=== PATIENT | female | born 1930 | race Caucasian/White ===

== ENCOUNTER 2017-01-04 10:37 | Emergency (ER) | payer MEDICARE, OTHER ==
[2017-01-04 10:54] VITALS: BP 153/86
[2017-01-04] MEDS ORDERED: Sodium Chloride 0.9% 10 ML Syringe FLUSH PRN (11:04)
[2017-01-04 12:07] LABS: CHLORIDE,CL 106 mmol/L (98-107); SODIUM,NA 141 mmol/L (136-145)
--- NOTE | 2017-01-06 09:02 | ER ---
Date of Service: 01/04/2017 SUBJECTIVE: Zarina presents to the emergency room with complaints of rectal bleeding. She states that she had 2 bloody stools the night before presenting to the emergency room. She states that she did become quite anxious after seeing this and states that afterwards she began experiencing some dizziness and lightheadedness. She states that the bleeding was fairly small amount, and there were no clots. She states that it was bright red blood, and there was no coffee-grounds or tarry looking stool. The patient also complains of cough that she has been experiencing for approximately a month. She states that she does occasionally experience some mild shortness of breath with this. She states that she has not been evaluated for this. PAST MEDICAL HISTORY: 1. Hemorrhoids. 2. Diverticulosis. 3. History of chronic bronchitis. 4. GERD. 5. Atrial fibrillation. MEDICATIONS: 1. Benadryl. 2. Aspirin. 3. Acetaminophen. 4. Betapace. 5. Polyethylene glycol. ALLERGIES: 1. Famotidine. 2. Ensure. 3. Omeprazole. 4. Senna. 5. Taco seasoning. REVIEW OF SYSTEMS: General: Denies any fever or chills. HEENT: No sore throat, rhinorrhea, or congestion. Respiratory: Please see history of present illness. Cardiac: Denies any substernal chest pain. No jaw, arm, neck, or back pain. Gastrointestinal: Please see history of present illness. She denies any abdominal pain. Genitourinary: Does complain of hemorrhoids. Musculoskeletal: No myalgias or arthralgias. PHYSICAL EXAMINATION: General: An 86-year-old female patient, who is in no acute distress. Vital Signs: Blood pressure is 153/86, heart rate is 76, temperature is 36.4, respiratory rate is 18, and O2 saturation 98%. Skin: Warm, pink, and dry. HEENT: Head is normocephalic and atraumatic. Eyes, PERRLA. Extraocular movements are intact. Mouth, oral mucosa is moist. No erythema or exudate noted in the hypopharynx. Neck: Supple without masses. There is no lymphadenopathy. Lungs: Clear throughout. Heart: Regular rate and rhythm. Abdomen: Soft, nontender. There is no hepatosplenomegaly or masses noted. Extremities: Without edema. Genitourinary: She does have evidence of significant number of external hemorrhoids and external skin tags, some of them with evidence of recent bleeding. Neurologic: She is alert, oriented, and answers all questions appropriately. Her speech is fluent. Her gait is within normal limits. LABORATORY DATA: WBCs 5.0, hemoglobin is 10.8, and platelets are 160. Coag: PT is 10.2, INR is 0.9. Chemistry: Sodium is 141, potassium is 4.1, chloride is 106, bicarb is 28, BUN is 14, creatinine 0.9, creatinine clearance is 39.27, GFR is 60, glucose 127, lactic acid is 1.5, calcium is 8.5, and corrected calcium is 9.3. Total bilirubin is 0.6, AST is 14, ALT is 11, and alkaline phosphatase is 86. C-reactive protein is less than 0.2, total protein is 6.2, albumin is 3.0. Blood cultures x2 were obtained and are pending. Abdomen complete was obtained, and there was no evidence of any acute pathology. ASSESSMENT: 1. Acute bronchitis. 2. Hemorrhoids. PLAN: The patient was started on doxycycline 100 mg twice daily for 10 days. I also started her on Phenergan with codeine 1 to 2 teaspoons every 4 to 6 hours as needed for cough. Follow up in the clinic in 10 to 14 days or sooner if bleeding increases or if the patient has increased shortness of breath or lightheadedness. All questions were answered. MWK: 01/06/2017 00:26:11 MODL: 01/06/2017 03:12:15 /[id number]
== END 2017-01-04 12:40 | disposition home or self-care (01) ==
LOC: VM.ED 10:37
DX: K64.4 Residual hemorrhoidal skin tags (principal); J20.9 Acute bronchitis, unspecified; K21.9 Gastro-esophageal reflux disease without esophagitis; I48.91 Unspecified atrial fibrillation; Z88.8 Allergy status to other drugs, medicaments and biological substances; Z79.82 Long term (current) use of aspirin
CPT/HCPCS: 36415; 74022; 80053; 83605; 85025; 85610; 86140; 87040; 99283; 99283-GF

== ENCOUNTER 2017-10-18 14:24 | Emergency (ER) | payer MEDICARE, OTHER ==
[2017-10-18 14:32] VITALS: BP 137/78
--- NOTE | 2017-10-18 15:34 | EDM.PDOC ---
ED HPI GENERAL MEDICAL PROBLEM - General Chief Complaint: Respiratory Problem Stated Complaint: COUGHING Time Seen by Provider: 10/18/17 14:47 Source of Information: Reports: Patient, Family History Limitations: Reports: No Limitations - History of Present Illness INITIAL COMMENTS - FREE TEXT/NARRATIVE: Patient has been coughing for the last 3-4 days. No fever, chills, night sweats. She denies chest pain, but is short of breath when coughing. She states she has been feeling tired. She denies abdominal pain, no nausea, vomiting, no blood in urine or stool. States the over the counter medications she has been taking do not work. No sputum production. She does not get short of breath with activity. Son states she has been feeling dizzy. She has no other complaints. 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 Treatments - Related Data Allergies Allergy/AdvReac Type Severity Reaction Status Date / Time famotidine Allergy Itching Verified 10/18/17 14:33 lactose-reduced food Allergy Edema Verified 10/18/17 14:33 [From Ensure] nutritional Allergy Edema Verified 10/18/17 14:33 supplement,special formulas [From Ensure] omeprazole [From Prilosec] Allergy Swelling Verified 10/18/17 14:33 senna Allergy Itching Verified 10/18/17 14:33 taco seasoning Allergy Edema Uncoded 01/04/17 10:45 Home Meds: Home Meds Sotalol [Betapace] 80 mg PO BID 04/09/15 [History] Acetaminophen [Tylenol Extra Strength] 1,000 mg PO Q8H PRN 01/14/16 [History] Aspirin 325 mg PO DAILY 01/14/16 [History] Polyethylene Glycol 3350 [MiraLAX] 17 gm PO DAILY PRN 01/14/16 [History] diphenhydrAMINE [Benadryl] 50 mg PO Q8H PRN 02/29/16 [History] Hydrocortisone Acetate [Anucort-HC] 25 mg RC BEDTIME PRN 10/18/17 [History] Past Medical History HEENT History: Reports: Cataract, Other (See Below) Other HEENT History: jaw asymmetry. 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: Musculoskeletal History: Reports: Fracture, Other (See Below) Other Musculoskeletal History: left patella fx Neurological History: Reports: Migraines Psychiatric History: Reports: None Oncologic (Cancer) History: Reports: Breast Dermatologic History: Reports: Other (See Below) Other Dermatologic History: actinic keratosis - Past Surgical History GI Surgical History: Reports: Colonoscopy Female Surgical History: Reports: Hysterectomy Musculoskeletal Surgical History: Reports: Other (See Below) Other Musculoskeletal Surgeries/Procedures:: knee surgery Oncologic Surgical History: Reports: Mastectomy Social & Family History - Family History Family Medical History: Noncontributory - Tobacco Use Smoking Status *Q: Unknown Ever Smoked - Caffeine Use Caffeine Use: Reports: Coffee ED ROS GENERAL - Review of Systems Review Of Systems: See Below Constitutional: Reports: No Symptoms HEENT: Reports: No Symptoms Respiratory: Reports: Cough Cardiovascular: Reports: No Symptoms Endocrine: Reports: No Symptoms GI/Abdominal: Reports: No Symptoms : Reports: No Symptoms Musculoskeletal: Reports: No Symptoms Skin: Reports: No Symptoms Neurological: Reports: No Symptoms Psychiatric: Reports: No Symptoms Hematologic/Lymphatic: Reports: No Symptoms Immunologic: Reports: No Symptoms ED EXAM, GENERAL - Physical Exam Exam: See Below Exam Limited By: No Limitations General Appearance: Alert, WD/WN, No Apparent Distress Ears: Normal External Exam, Normal Canal, Hearing Grossly Normal, Normal TMs Head: Atraumatic, Normocephalic Neck: Normal Inspection, Supple, Non-Tender, Full Range of Motion Respiratory/Chest: No Respiratory Distress, Lungs Clear, Normal Breath Sounds, No Accessory Muscle Use, Chest Non-Tender Cardiovascular: Normal Peripheral Pulses, Regular Rate, Rhythm, No Edema, No Gallop, No JVD, No Murmur, No Rub GI/Abdominal: Normal Bowel Sounds, Soft, Non-Tender, No Organomegaly, No Distention, No Abnormal Bruit, No Mass Back Exam: Normal Inspection, Full Range of Motion, NT Extremities: Normal Inspection, Normal Range of Motion, Non-Tender, Normal Capillary Refill, No Pedal Edema Neurological: Alert, Oriented, CN II-XII Intact, Normal Cognition, Normal Gait, Normal Reflexes, No Motor/Sensory Deficits Psychiatric: Normal Affect, Normal Mood Skin Exam: Warm, Dry, Intact, Normal Color, No Rash Lymphatic: No Adenopathy Course - Vital Signs Last Recorded V/S: Last Vital Signs Temp 37.1 C 10/18/17 14:28 Pulse 76 10/18/17 14:28 Resp 18 10/18/17 14:28 BP 137/78 10/18/17 14:28 Pulse Ox 95 10/18/17 14:28 Departure - Departure Time of Disposition: 15:58 Disposition: Home, Self-Care 01 Condition: Good Clinical Impression: Cough, Viral respiratory illness, COPD (chronic obstructive pulmonary disease) - Discharge Information Instructions: Viral Respiratory Infection, [id number], Cough, Adult, Easy-to- Read, Chronic Obstructive Pulmonary Disease, [id number] Additional Instructions: Follow up with your regular provider in 5-7 days if you are not better. Your x-ray does not show any pneumonia at this time. Your blood work did not show sign of bacterial infection. Drink plenty of water and get as much rest as you need. This is likely a viral illness and you should treat it with over the counter medications. I have included a list for you. Please call with any questions or concern - Problem List & Annotations (1) Cough SNOMED Code(s): 98683801 Code(s): R05 - COUGH Status: Acute Priority: Medium Current Visit: Yes (2) Viral respiratory illness SNOMED Code(s): 979493222 Code(s): J98.8 - OTHER SPECIFIED RESPIRATORY DISORDERS; B97.89 - OTH VIRAL AGENTS THE CAUSE OF DISEASES CLASSD ELSWHR Status: Acute Priority: Medium Current Visit: Yes - Problem List Review Problem List Initiated/Reviewed/Updated: Yes - Assessment/Plan Assessment:: cough viral upper respiratory infection Plan: Follow up with your regular provider in 5-7 days if you are not better. Your x-ray does not show any pneumonia at this time. Your blood work did not show sign of bacterial infection. Drink plenty of water and get as much rest as you need. This is likely a viral illness and you should treat it with over the counter medications. I have included a list for you. Please call with any questions or concern
[2017-10-18] MEDS ORDERED: Albuterol/Ipratropium 3.0-0.5 MG/3 ML Neb Soln NEB ONE (15:43)
== END 2017-10-18 16:05 | disposition home or self-care (01) ==
LOC: VM.ED 14:24
DX: J44.9 Chronic obstructive pulmonary disease, unspecified (principal); J98.8 Other specified respiratory disorders; I48.91 Unspecified atrial fibrillation; I25.2 Old myocardial infarction; B97.89 Other viral agents as the cause of diseases classified elsewhere; Z88.8 Allergy status to other drugs, medicaments and biological substances; Z79.82 Long term (current) use of aspirin; Z79.899 Other long term (current) drug therapy
CPT/HCPCS: 36415; 71046; 85025; 99283; 99283-GF

== ENCOUNTER 2019-06-04 20:22 | Emergency (ER) | payer MEDICARE, OTHER ==
--- NOTE | 2019-06-04 20:37 | EDM.PDOC ---
ED HPI GENERAL MEDICAL PROBLEM - General Chief Complaint: Gastrointestinal Problem Stated Complaint: Blood in S[place] Time Seen by Provider: 06/04/19 20:25 Source of Information: Reports: Patient History Limitations: Reports: No Limitations - History of Present Illness INITIAL COMMENTS - FREE TEXT/NARRATIVE: Patient states prior to arrival about 25 minutes ago she had a sudden onset of red bowel movement states it was a lot. She felt a little lightheaded afterwards but feels fine now she has no other complaints no abdominal pain no nausea vomiting weakness dizziness. She has a history of hemorrhoids and diverticulitis/diverticulosis That she felt normal all day ate pizza for supper Duration: Minutes: Improves with: Reports: None Worsens with: Reports: None - Related Data Allergies Allergy/AdvReac Type Severity Reaction Status Date / Time famotidine Allergy Itching Verified 06/04/19 20:40 lactose-reduced food Allergy Facial Verified 06/04/19 20:40 [From Ensure] Swelling nutritional Allergy Facial Verified 06/04/19 20:40 supplement,special formulas Swelling [From Ensure] omeprazole [From Prilosec] Allergy Swelling Verified 06/04/19 20:40 senna Allergy Itching Verified 06/04/19 20:40 taco seasoning Allergy Facial Uncoded 06/04/19 20:40 Swelling Home Meds: Home Meds Sotalol [Betapace] 80 mg PO BID 04/09/15 [History] Acetaminophen [Tylenol Extra Strength] 1,000 mg PO Q8H PRN 01/14/16 [History] Aspirin 325 mg PO DAILY 01/14/16 [History] Polyethylene Glycol 3350 [MiraLAX] 17 gm PO DAILY PRN 01/14/16 [History] diphenhydrAMINE [Benadryl] 50 mg PO Q8H PRN 02/29/16 [History] Hydrocortisone Acetate [Anucort-HC] 25 mg RC BEDTIME PRN 10/18/17 [History] Past Medical History HEENT History: Reports: Cataract, Other (See Below) Other HEENT History: jaw asymmetry. 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: Musculoskeletal History: Reports: Fracture, Other (See Below) Other Musculoskeletal History: left patella fx Neurological History: Reports: Migraines Psychiatric History: Reports: None Oncologic (Cancer) History: Reports: Breast Dermatologic History: Reports: Other (See Below) Other Dermatologic History: actinic keratosis - Past Surgical History GI Surgical History: Reports: Colonoscopy Female Surgical History: Reports: Hysterectomy Musculoskeletal Surgical History: Reports: Other (See Below) Other Musculoskeletal Surgeries/Procedures:: knee surgery Oncologic Surgical History: Reports: Mastectomy Social & Family History - Family History Family Medical History: Noncontributory - Caffeine Use Caffeine Use: Reports: Coffee ED ROS GENERAL - Review of Systems Review Of Systems: See Below Constitutional: Reports: No Symptoms. Denies: Fever, Chills, Malaise, Weakness , Fatigue, Night Sweats, Diaphoresis, Decreased Appetite HEENT: Reports: No Symptoms Respiratory: Reports: No Symptoms Cardiovascular: Denies: Chest Pain, Blood Pressure Problem, Claudication, Dyspnea on Exertion, Edema, Lightheadedness, Palpitations, Syncope Endocrine: Denies: Fatigue GI/Abdominal: Reports: Bloody Stool. Denies: Abdominal Pain, Anorexia, Black Stool, Constipation, Diarrhea, Decreased Appetite, Distension, Hematemesis, Melena, Mucous in Stool, Nausea, Vomiting : Reports: No Symptoms Musculoskeletal: Reports: No Symptoms Skin: Reports: No Symptoms Neurological: Reports: Dizziness, Other (She states the dizziness is chronic and has been going on for years with no changes) Psychiatric: Reports: No Symptoms Hematologic/Lymphatic: Reports: No Symptoms Immunologic: Reports: No Symptoms ED EXAM, GI/ABD - Physical Exam Exam: See Below Exam Limited By: No Limitations General Appearance: Alert, WD/WN, No Apparent Distress, Other (Patient is alert and friendly follows all commands answers all questions cranial nerves II through XII are intact) Eyes: Bilateral: Normal Appearance, EOMI Throat/Mouth: Normal Inspection, Normal Lips, Normal Teeth, Normal Gums, Normal Oropharynx, Normal Voice, No Airway Compromise, Other (Moist mucous membranes) Neck: Normal Inspection, Supple, Non-Tender, Full Range of Motion Respiratory/Chest: No Respiratory Distress, Lungs Clear, Normal Breath Sounds, No Accessory Muscle Use, Chest Non-Tender Cardiovascular: Normal Peripheral Pulses, Regular Rate, Rhythm, No Edema, No Gallop, No JVD, No Murmur, No Rub GI/Abdominal Exam: Normal Bowel Sounds, Soft, Non-Tender, No Organomegaly, No Distention. No: Guarding, Rigid, Rebound, Tender Back Exam: Normal Inspection, Full Range of Motion Extremities: Normal Inspection, Normal Range of Motion, Non-Tender, No Pedal Edema, Normal Capillary Refill Neurological: Alert, Oriented, CN II-XII Intact, Normal Cognition, Normal Gait Psychiatric: Normal Affect, Normal Mood Course - Vital Signs Text/Narrative:: Noted bright red blood in the toilet after patient had BM Patient has longstanding history of hypertension states she does not want to take medicine Hemoglobin hematocrit BUN and creatinine all within normal limits all vital signs are stable no abdominal pain No acute finding with orthostatics Patient recheck states she feels fine does not want admission or transfer states she will follow-up with Lor Friday or Friday explained risk versus benefits the patient she still states she does not wish for admission knobs or transfer She has been told that she needed to start blood pressure medication for a while now but has not but she is willing to start tonight I will treat her with lisinopril 10 mg 1 p.o. daily till she sees her primary care provider Last Recorded V/S: Last Vital Signs Temp 35.7 C 06/04/19 20:47 Pulse 94 06/04/19 21:08 Resp 16 06/04/19 21:08 BP 155/101 H 06/04/19 21:08 Pulse Ox 97 06/04/19 21:08 - Orders/Labs/Meds Labs: Laboratory Tests 06/04/19 06/04/19 06/04/19 Range/Units 20:59 20:59 20:59 WBC 6.0 (4.0-10.0) x10^3/uL RBC 4.32 (4.00-5.50) x10^6/uL Hgb 12.5 D (12.0-16.0) g/dL Hct 38.7 (33.0-47.0) % MCV 89.6 (78.0-93.0) fL MCH 28.9 (26.0-32.0) pg MCHC 32.3 (32.0-36.0) g/dL RDW Coeff of Jolynn 14.8 (10.0-15.0) % Plt Count 191 (130-400) x10^3/uL Neut % (Auto) 63.7 (50.0-80.0) % Lymph % (Auto) 27.7 (25.0-50.0) % [place] % (Auto) 6.9 (2.0-11.0) % Eos % (Auto) 1.5 (0.0-4.0) % Baso % (Auto) 0.2 (0.2-1.2) % PT 10.2 (10.0-12.8) SEC INR 0.9 L (2.0-3.5) Sodium 140 (136-145) mmol/L Potassium 3.9 (3.5-5.1) mmol/L Chloride 102 (98-107) mmol/L Carbon Dioxide 31 (21-32) mmol/L Anion Gap 10.9 (10-20) mmol/L BUN 14 (7-18) mg/dL Creatinine 0.9 (0.55-1.02) mg/dL Est Cr Clr Drug Dosing 39.42 mL/min Estimated GFR (MDRD) 59 Glucose 111 H (74-106) mg/dL Calcium 8.2 L (8.5-10.1) mg/dL Corrected Calcium 8.52 (8.5-10.1) mg/dL Total Bilirubin 0.5 (0.2-1.0) mg/dL AST 15 (15-37) U/L ALT 14 (14-59) U/L Alkaline Phosphatase 108 (46-116) U/L Total Protein 7.1 (6.4-8.2) g/dL Albumin 3.6 (3.4-5.0) g/dL Globulin 3.5 Albumin/Globulin Ratio 1.03 Meds: Medications Discontinued Medications Generic Name Dose Route Start Last Admin Trade Name Freq PRN Reason Stop Dose Admin Lisinopril 10 mg 06/04/19 22:27 Prinivil PO 06/04/19 22:28 ONETIME ONE Departure - Departure Time of Disposition: 22:25 Disposition: Home, Self-Care 01 Condition: Good Clinical Impression: Rectal bleeding, Hypertension - Discharge Information *PRESCRIPTION DRUG MONITORING PROGRAM REVIEWED*: No *COPY OF PRESCRIPTION DRUG MONITORING REPORT IN PATIENT ALETHEA: No Instructions: Hypertension, [id number], Rectal Bleeding, [id number] Referrals: Lor Gonzalez PA-C [Primary Care Provider] - Forms: ED Department Discharge Sepsis Event Note - Focused Exam Vital Signs: Vital Signs Temp Pulse Resp BP Pulse Ox 06/04/19 21:08 94 16 155/101 H 97 06/04/19 20:47 35.7 C 99 16 172/100 H 97 Date Exam was Performed: 06/04/19 Time Exam was Performed: 22:30 - Problem List & Annotations (1) Hypertension SNOMED Code(s): 19702550 Code(s): I10 - ESSENTIAL (PRIMARY) HYPERTENSION Status: Acute Current Visit: Yes (2) Rectal bleeding SNOMED Code(s): 55111697 Code(s): K62.5 - HEMORRHAGE OF ANUS AND RECTUM Status: Acute Current Visit: Yes
[2019-06-04 21:16] VITALS: PULSE 94
[2019-06-04 21:34] LABS: ANION GAP 10.9 mmol/L (10-20)
[2019-06-04] MEDS ORDERED: Lisinopril 10 MG Tab PO ONE (22:27)
[2019-06-04 22:44] VITALS: BP 145/100
== END 2019-06-04 22:47 | disposition home or self-care (01) ==
LOC: VM.ED 20:22
DX: K62.5 Hemorrhage of anus and rectum (principal); I10 Essential (primary) hypertension; Z88.8 Allergy status to other drugs, medicaments and biological substances; Z91.011 Allergy to milk products; Z79.82 Long term (current) use of aspirin; Z86.73 Personal history of transient ischemic attack (TIA), and cerebral infarction without residual deficits
CPT/HCPCS: 36415; 80053; 85025; 85610; 99284-GF; 99285; A9270-GY

== ENCOUNTER 2020-01-18 18:33 | Emergency (ER) | payer MEDICARE, OTHER ==
[2020-01-18 18:54] VITALS: BP 144/80; PULSE 96
--- NOTE | 2020-01-19 06:28 | EDM.PDOC ---
ED HPI GENERAL MEDICAL PROBLEM - General Chief Complaint: Gastrointestinal Problem Stated Complaint: ER Time Seen by Provider: 01/18/20 18:33 Source of Information: Reports: Patient History Limitations: Reports: No Limitations - History of Present Illness INITIAL COMMENTS - FREE TEXT/NARRATIVE: Pt. presents to ER with complaints of acute onset bright red rectal bleeding. Pt. states that she has a history of hemorrhoids, and recently had them banded. She is supposed to have surgery at some point. She states that she recently had knee surgery and has been on oral opiates for pain, which has caused her chronic constipation to get worse. Pt. denies any abdominal pain. No fever or chills. Denies any lightheadedness. No shortness of breath. She states that the she has had only one episode of rectal bleeding, and that was just prior to coming to ER. Onset Date: 01/18/20 Associated Symptoms: Reports: Other - Related Data Allergies Allergy/AdvReac Type Severity Reaction Status Date / Time famotidine Allergy Itching Verified 01/18/20 19:00 lactose-reduced food Allergy Facial Verified 01/18/20 19:00 [From Ensure] Swelling nutritional Allergy Facial Verified 01/18/20 19:00 supplement,special formulas Swelling [From Ensure] omeprazole [From Prilosec] Allergy Swelling Verified 01/18/20 19:00 senna Allergy Itching Verified 01/18/20 19:00 taco seasoning Allergy Facial Uncoded 01/18/20 19:00 Swelling Home Meds: Home Meds Acetaminophen [Tylenol Extra Strength] 1,000 mg PO Q8H PRN 01/14/16 [History] Aspirin 325 mg PO DAILY 01/14/16 [History] Polyethylene Glycol 3350 [MiraLAX] 17 gm PO DAILY PRN 01/14/16 [History] diphenhydrAMINE [Benadryl] 50 mg PO Q8H PRN 02/29/16 [History] Hydrocortisone Acetate [Anucort-HC] 25 mg RC BEDTIME PRN 10/18/17 [History] Albuterol Sulfate [Albuterol Sulfate Hfa] 2 puff IH Q4HR PRN 06/05/19 [History] Past Medical History HEENT History: Reports: Cataract, Other (See Below) Other HEENT History: jaw asymmetry. tooth fx Cardiovascular History: Reports: Afib, [place], Other (See Below) Other Cardiovascular History: nstemi Respiratory History: Reports: Asthma, Other (See Below) Other Respiratory History: Mild intermittent asthma. 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: Musculoskeletal History: Reports: Fracture, Other (See Below) Other Musculoskeletal History: left patella fx Neurological History: Reports: Migraines Psychiatric History: Reports: None Oncologic (Cancer) History: Reports: Breast Dermatologic History: Reports: Other (See Below) Other Dermatologic History: actinic keratosis - Past Surgical History GI Surgical History: Reports: Colonoscopy Female Surgical History: Reports: Hysterectomy Musculoskeletal Surgical History: Reports: Other (See Below) Other Musculoskeletal Surgeries/Procedures:: knee surgery Oncologic Surgical History: Reports: Mastectomy Social & Family History - Family History Family Medical History: Noncontributory - Tobacco Use Smoking Status *Q: Unknown Ever Smoked - Caffeine Use Caffeine Use: Reports: Coffee ED ROS GENERAL - Review of Systems Review Of Systems: Comprehensive ROS is negative, except as noted in HPI. ED EXAM, GENERAL - Physical Exam Exam: See Below GI/Abdominal: Normal Bowel Sounds, Soft, Non-Tender, No Organomegaly, No Distention, No Mass (Female) Exam: Other (Rectal exam performed. There was a small amount of mariaelena blood noted on exam. Large amount of internal and external hemorrhoids noted. Decreased elasticity/increased narrowing of anus/rectum due to hemorrhoids.) Course - Vital Signs Last Recorded V/S: Last Vital Signs Temp 35.9 C L 01/18/20 18:40 Pulse 96 01/18/20 18:40 Resp 16 01/18/20 18:40 BP 144/80 H 01/18/20 18:40 Pulse Ox 98 01/18/20 18:40 Departure - Departure Time of Disposition: 19:15 Disposition: Home, Self-Care 01 Clinical Impression: Hemorrhoids, complicated - Discharge Information Instructions: Hydrocortisone suppositories, Hemorrhoids, [id number], Hydrocortisone rectal cream Referrals: Lor Gonzalez PA-C [Primary Care Provider] - Forms: ED Department Discharge Additional Instructions: Anusol HC suppositories 1 suppository placed three times daily for hemorrhoids Anusol cream apply to external hemorrhoids twice daily Start miralax again 17 grams (one capful) daily mixed into large glass of water Increase intake of water Colace 100mg 1 twice daily for constipation Both the colace and the miralax are available over the counter Follow-up in clinic as needed. Sepsis Event Note (ED) - Evaluation Sepsis Screening Result: No Definite Risk - Focused Exam Vital Signs: Vital Signs Temp Pulse Resp BP Pulse Ox 01/18/20 18:40 35.9 C L 96 16 144/80 H 98 - Assessment/Plan Plan: Anusol HC suppositories 1 suppository placed three times daily for hemorrhoids Anusol cream apply to external hemorrhoids twice daily Start miralax again 17 grams (one capful) daily mixed into large glass of water Increase intake of water Colace 100mg 1 twice daily for constipation Both the colace and the miralax are available over the counter Follow-up in clinic as needed.
== END 2020-01-18 19:15 | disposition home or self-care (01) ==
LOC: VM.ED 18:33
DX: K64.4 Residual hemorrhoidal skin tags (principal); K64.8 Other hemorrhoids; I48.91 Unspecified atrial fibrillation; I25.2 Old myocardial infarction; J45.909 Unspecified asthma, uncomplicated; Z88.8 Allergy status to other drugs, medicaments and biological substances; Z91.048 Other nonmedicinal substance allergy status; Z91.018 Allergy to other foods; Z79.82 Long term (current) use of aspirin
CPT/HCPCS: 99283

== ENCOUNTER 2020-03-17 07:26 | Emergency (ER) | payer MEDICARE, OTHER ==
[2020-03-17 07:43] VITALS: BP 145/90; PULSE 96
--- NOTE | 2020-03-17 07:58 | EDM.PDOC ---
ED HPI GENERAL MEDICAL PROBLEM - General Chief Complaint: Gastrointestinal Problem Stated Complaint: UNABLE TO VOID Time Seen by Provider: 03/17/20 07:30 Source of Information: Reports: Patient History Limitations: Reports: No Limitations - History of Present Illness INITIAL COMMENTS - FREE TEXT/NARRATIVE: Patient comes in the emergency department with complaints of constipation. Patient states that she has not had a bowel movement 4 to 5 days. Patient states that she has taken 1 MiraLAX cap full as well as for laxatives/stool softeners in the last 4 days with no results. Patient does not remember the last time that she had a consistent bowel movement for she has been constipated the last 1 to 2 months. She denies any nausea or vomiting. She also denies any fever, chest pain, shortness of breath, genitourinary concerns, or peripheral edema. Patient states that she feels fairly well however she knows that if she continues that there will be bigger consequences. Patient has taken suppositories in the past as well as enemas with relief. Patient denies taking any thing that makes the symptoms better or worse. Nursing did see in the patients clinic chart she has been given opioids this past month intermittently. Patient also does have extensive history of hemorrhoids and has actually been seen in the emergency department regarding her hemorrhoids and bleeding in the past. Any concerns or complaints regarding hemorrhoids currently. Onset: Gradual Duration: Intermittent Quality: Reports: Other Severity: Moderate Improves with: Reports: None Worsens with: Reports: None Associated Symptoms: Reports: No Other Symptoms - Related Data Allergies Allergy/AdvReac Type Severity Reaction Status Date / Time famotidine Allergy Itching Verified 03/17/20 07:45 lactose-reduced food Allergy Facial Verified 03/17/20 07:45 [From Ensure] Swelling nutritional Allergy Facial Verified 03/17/20 07:45 supplement,special formulas Swelling [From Ensure] omeprazole [From Prilosec] Allergy Swelling Verified 03/17/20 07:45 senna Allergy Itching Verified 03/17/20 07:45 taco seasoning Allergy Facial Uncoded 03/17/20 07:45 Swelling Home Meds: Home Meds Acetaminophen [Tylenol Extra Strength] 1,000 mg PO Q8H PRN 01/14/16 [History] Aspirin 325 mg PO DAILY 01/14/16 [History] Polyethylene Glycol 3350 [MiraLAX] 17 gm PO DAILY PRN 01/14/16 [History] diphenhydrAMINE [Benadryl] 50 mg PO Q8H PRN 02/29/16 [History] Hydrocortisone Acetate [Anucort-HC] 25 mg RC BEDTIME PRN 10/18/17 [History] Albuterol Sulfate [Albuterol Sulfate Hfa] 2 puff IH Q4HR PRN 06/05/19 [History] Past Medical History HEENT History: Reports: Cataract, Other (See Below) Other HEENT History: jaw asymmetry. tooth fx Cardiovascular History: Reports: Afib, NE, Other (See Below) Other Cardiovascular History: nstemi Respiratory History: Reports: Asthma, Other (See Below) Other Respiratory History: Mild intermittent asthma. 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: Musculoskeletal History: Reports: Fracture, Other (See Below) Other Musculoskeletal History: left patella fx Neurological History: Reports: Migraines Psychiatric History: Reports: None Oncologic (Cancer) History: Reports: Breast Dermatologic History: Reports: Other (See Below) Other Dermatologic History: actinic keratosis - Past Surgical History GI Surgical History: Reports: Colonoscopy Female Surgical History: Reports: Hysterectomy Musculoskeletal Surgical History: Reports: Other (See Below) Other Musculoskeletal Surgeries/Procedures:: knee surgery Oncologic Surgical History: Reports: Mastectomy Social & Family History - Family History Family Medical History: Noncontributory - Caffeine Use Caffeine Use: Reports: Coffee ED ROS GENERAL - Review of Systems Review Of Systems: Comprehensive ROS is negative, except as noted in HPI. Constitutional: Reports: No Symptoms HEENT: Reports: No Symptoms Respiratory: Reports: No Symptoms Cardiovascular: Reports: No Symptoms Endocrine: Reports: No Symptoms : Reports: No Symptoms Musculoskeletal: Reports: No Symptoms Skin: Reports: No Symptoms Neurological: Reports: No Symptoms Psychiatric: Reports: No Symptoms Hematologic/Lymphatic: Reports: No Symptoms Immunologic: Reports: No Symptoms ED EXAM, GENERAL - Physical Exam Exam: See Below Exam Limited By: No Limitations General Appearance: Alert, WD/WN, No Apparent Distress Head: Atraumatic, Normocephalic Neck: Normal Inspection, Supple, Non-Tender, Full Range of Motion Respiratory/Chest: No Respiratory Distress, Lungs Clear, Normal Breath Sounds, Chest Non-Tender Cardiovascular: Normal Peripheral Pulses, Regular Rate, Rhythm, No Edema GI/Abdominal: Normal Bowel Sounds, Soft, Non-Tender, No Distention. No: Distended, Rebound, Tender, Abnormal Bowel Sounds, Hernia Extremities: Normal Inspection, Normal Range of Motion, Non-Tender, Normal Capillary Refill Neurological: Alert, Oriented, Normal Gait Psychiatric: Normal Affect, Normal Mood Skin Exam: Warm, Dry, Intact, Normal Color Course - Vital Signs Last Recorded V/S: Last Vital Signs Temp 36.2 C 03/17/20 07:33 Pulse 96 03/17/20 07:33 Resp 18 03/17/20 07:33 BP 145/90 H 03/17/20 07:33 Pulse Ox 97 03/17/20 07:33 Departure - Departure Time of Disposition: 08:30 Disposition: Home, Self-Care 01 Condition: Good Clinical Impression: Constipation - Discharge Information *PRESCRIPTION DRUG MONITORING PROGRAM REVIEWED*: Not Applicable *COPY OF PRESCRIPTION DRUG MONITORING REPORT IN PATIENT ALETHEA: Not Applicable Instructions: Constipation, Adult, Magnesium Citrate oral solution Forms: ED Department Discharge Additional Instructions: 1. rest 2. increase your water intake 3. Continue all at home medications 4. Try taking a 1/2 bottle of the magnesium citrate and wait a few hours if no results begin can try taking the second half of the bottle 5. 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 6. Activity and diet as tolerated 7. Can take over the counter Tylenol for any pain or discomfort 8. Follow up with PCP if symptoms continue, return, or progress 9. Call with any questions or concerns 10. If no relief please return and we will look at completing an enema. Sepsis Event Note (ED) - Evaluation Sepsis Screening Result: No Definite Risk - Focused Exam Vital Signs: Vital Signs Temp Pulse Resp BP Pulse Ox 03/17/20 07:33 36.2 C 96 18 145/90 H 97 - Assessment/Plan Assessment:: 1. constipation Plan: 1. X-ray completed in the emergency department results reviewed with the patient 2. Patient sent home with a bottle of Magnesium citrate 3. Education regarding splinting, activity, [id number] medications, and follow-up care provided. 4. All questions and concerns addressed with the patient prior to discharge
--- NOTE | 2020-03-17 08:24 | CR ---
[id number] RAD/RAD Abd Flat and Upright 2V EXAM: RAD Abd Flat and Upright 2V INDICATION: CONSTIPATION COMPARISON: 2016. DISCUSSION: Unobstructed bowel gas pattern. No radiographically evident pneumoperitoneum. Moderate colonic stool burden. Correlate for constipation. IMPRESSION: As above. Luis Choudhary MD 03/17/20 0822 Thank you for allowing us to participate in the care of your patient.
[2020-03-17] MEDS ORDERED: Magnesium Citrate Solution 296 ML Bottle PO ONE (08:25)
== END 2020-03-17 08:44 | disposition home or self-care (01) ==
LOC: VM.ED 07:26
DX: K59.00 Constipation, unspecified (principal); I48.91 Unspecified atrial fibrillation; I25.2 Old myocardial infarction; J45.909 Unspecified asthma, uncomplicated; Z88.8 Allergy status to other drugs, medicaments and biological substances; Z91.011 Allergy to milk products; Z91.018 Allergy to other foods; Z79.82 Long term (current) use of aspirin
CPT/HCPCS: 74019; 99283; 99283-25

== ENCOUNTER 2020-11-03 14:51 | Observation (INO) | payer MEDICARE, OTHER ==
[2020-11-03] MEDS ORDERED: Morphine 2 MG/ML SYRINGE IVPUSH ONE (15:27)
[2020-11-03] MEDS ORDERED: Ondansetron 4 MG/2 ML SDV IVPUSH ONE (15:27)
--- NOTE | 2020-11-03 15:45 | EDM.PDOC ---
ED HPI GENERAL MEDICAL PROBLEM - General Stated Complaint: NOT FEELING WELL, THROWING UP Time Seen by Provider: 11/03/20 15:15 Source of Information: Reports: Patient, Family History Limitations: Reports: Uncooperative, Other (does not answer qustions other than in single words, writhing in pain. ) - History of Present Illness Onset: Today, Sudden Duration: Hour(s): Location: Reports: Abdomen Quality: Reports: Sharp, Stabbing Improves with: Reports: None Worsens with: Reports: None Associated Symptoms: Reports: Nausea/Vomiting Lower Abdomen Pain Score (Numeric/FACES): 9 - Related Data Allergies Allergy/AdvReac Type Severity Reaction Status Date / Time famotidine Allergy Itching Verified 11/03/20 16:00 lactose-reduced food Allergy Facial Verified 11/03/20 16:00 [From Ensure] Swelling nutritional Allergy Facial Verified 11/03/20 16:00 supplement,special formulas Swelling [From Ensure] omeprazole [From Prilosec] Allergy Swelling Verified 11/03/20 16:00 senna Allergy Itching Verified 11/03/20 16:00 taco seasoning Allergy Facial Uncoded 11/03/20 16:00 Swelling Home Meds: Home Meds Acetaminophen [Tylenol Extra Strength] 1,000 mg PO Q8H PRN 01/14/16 [History] Aspirin 325 mg PO DAILY 01/14/16 [History] Polyethylene Glycol 3350 [MiraLAX] 17 gm PO DAILY PRN 01/14/16 [History] diphenhydrAMINE [Benadryl] 50 mg PO Q8H PRN 02/29/16 [History] Hydrocortisone Acetate [Anucort-HC] 25 mg RC BEDTIME PRN 10/18/17 [History] Albuterol Sulfate [Albuterol Sulfate Hfa] 2 puff IH Q4HR PRN 06/05/19 [History] Past Medical History HEENT History: Reports: Cataract, Other (See Below) Other HEENT History: jaw asymmetry. tooth fx Cardiovascular History: Reports: Afib, PR, Other (See Below) Other Cardiovascular History: nstemi Respiratory History: Reports: Asthma, Other (See Below) Other Respiratory History: Mild intermittent asthma. 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: Musculoskeletal History: Reports: Fracture, Other (See Below) Other Musculoskeletal History: left patella fx Neurological History: Reports: Migraines Psychiatric History: Reports: None Oncologic (Cancer) History: Reports: Breast Dermatologic History: Reports: Other (See Below) Other Dermatologic History: actinic keratosis - Past Surgical History GI Surgical History: Reports: Colonoscopy Female Surgical History: Reports: Hysterectomy Musculoskeletal Surgical History: Reports: Other (See Below) Other Musculoskeletal Surgeries/Procedures:: knee surgery Oncologic Surgical History: Reports: Mastectomy Social & Family History - Family History Family Medical History: No Pertinent Family History - Caffeine Use Caffeine Use: Reports: Coffee - Alcohol Use Alcohol Use History: No - Recreational Drug Use Recreational Drug Use: No Drug Use in Last 12 Months: No ED ROS GENERAL - Review of Systems Review Of Systems: See Below Constitutional: Reports: Weakness, Fatigue, Decreased Appetite. Denies: Fever, Chills, Night Sweats, Diaphoresis HEENT: Reports: No Symptoms. Denies: Eye Discharge, Glasses, Throat Swelling Respiratory: Reports: No Symptoms. Denies: Shortness of Breath, Cough Cardiovascular: Denies: Chest Pain, Dyspnea on Exertion Endocrine: Reports: No Symptoms GI/Abdominal: Reports: Abdominal Pain, Nausea, Vomiting. Denies: Black Stool, Bloody Stool, Diarrhea, Hematemesis, Hematochezia : Reports: No Symptoms. Denies: Frequency, Urgency Musculoskeletal: Reports: No Symptoms Skin: Reports: No Symptoms Neurological: Reports: No Symptoms ED EXAM, GI/ABD - Physical Exam Exam: See Below Exam Limited By: Uncooperative General Appearance: Alert, Anxious, Moderate Distress, Thin, Cachetic, Active Emesis Eyes: Bilateral: Normal Appearance, EOMI Ears: Normal External Exam Nose: Normal Inspection, Normal Mucosa Throat/Mouth: Normal Voice, Other (dry) Head: Atraumatic Neck: Normal Inspection Respiratory/Chest: No Respiratory Distress, Lungs Clear, Normal Breath Sounds, No Accessory Muscle Use, Chest Non-Tender Cardiovascular: Normal Peripheral Pulses, Regular Rate, Rhythm, No Edema GI/Abdominal Exam: Distended, Guarding, Rigid, Rebound, Tender, Abnormal Bowel Sounds Extremities: Normal Inspection, Normal Range of Motion, Non-Tender Neurological: Alert, Oriented Course - Vital Signs Last Recorded V/S: Last Vital Signs Temp 35.8 C L 11/03/20 15:15 Pulse 72 11/03/20 15:15 Resp 24 H 11/03/20 15:15 BP 187/103 H 11/03/20 15:15 Pulse Ox 100 11/03/20 15:15 - Orders/Labs/Meds Orders: Active Orders 24 hr Category Date Time Status REFLEX LACTIC ACID YES OR NO [CHEM] Routine Lab 11/03/20 16:10 Received Sodium Chloride 0.9% [Normal Saline] 1,000 ml Med 11/03/20 16:00 Active IV ASDIRECTED Sodium Chloride 0.9% [Saline Flush] Med 11/03/20 15:01 Active 10 ml FLUSH ASDIRECTED PRN Nasogastric Orogastric Tube Insertion [OM.PC] Routine Oth 11/03/20 16:19 Ordered Peripheral IV Insertion Adult [OM.PC] Urgent Oth 11/03/20 15:01 Ordered Medication Orders Sodium Chloride (Normal Saline) 1,000 mls @ 1,000 mls/hr IV ASDIRECTED KRISTINE Last Admin: 11/03/20 16:36 Dose: 1,000 mls/hr Documented by: MONICA Sodium Chloride (Sodium Chloride 0.9% 10 Ml Syringe) 10 ml FLUSH ASDIRECTED PRN PRN Reason: Keep Vein Open Labs: Laboratory Tests 11/03/20 11/03/20 11/03/20 Range/Units 15:39 15:39 15:39 WBC 8.3 (4.0-10.0) x10^3/uL RBC 4.26 (4.00-5.50) x10^6/uL Hgb 12.6 (12.0-16.0) g/dL Hct 37.0 (33.0-47.0) % MCV 86.9 (78.0-93.0) fL MCH 29.6 (26.0-32.0) pg MCHC 34.1 (32.0-36.0) g/dL RDW Coeff of Jolynn 14.1 (10.0-15.0) % Plt Count 225 (130-400) x10^3/uL Neut % (Auto) 78.1 (50.0-80.0) % Lymph % (Auto) 15.5 L (25.0-50.0) % Alfalfa % (Auto) 5.3 (2.0-11.0) % Eos % (Auto) 0.7 (0.0-4.0) % Baso % (Auto) 0.4 (0.2-1.2) % Sodium 135 L (136-145) mmol/L Potassium 3.7 (3.5-5.1) mmol/L Chloride 99 (98-107) mmol/L Carbon Dioxide 27 (21-32) mmol/L Anion Gap 12.7 (5-15) mmol/L BUN 11 (7-18) mg/dL Creatinine 0.9 (0.55-1.02) mg/dL Est Cr Clr Drug Dosing TNP Estimated GFR (MDRD) 59 Glucose 126 H (70-99) mg/dL Lactic Acid 2.8 H* (0.4-2.0) mmol/L Calcium 8.7 (8.5-10.1) mg/dL Corrected Calcium 8.9 (8.5-10.1) mg/dL Total Bilirubin 0.5 (0.2-1.0) mg/dL AST 21 (15-37) U/L ALT 9 L (14-59) U/L Alkaline Phosphatase 103 (46-116) U/L Troponin I High Sens (<=51) ng/L C-Reactive Protein < 0.2 (<=0.9) mg/dL Total Protein 7.3 (6.4-8.2) g/dL Albumin 3.8 (3.4-5.0) g/dL Globulin 3.5 Albumin/Globulin Ratio 1.09 Lipase 177 (73-393) U/L Urine Color (YELLOW) Urine Appearance (CLEAR) Urine pH (5.0-8.0) Ur Specific [place] Urine Protein (NEGATIVE) mg/dL Urine Glucose (UA) (NEGATIVE) mg/dL Urine Ketones (NEGATIVE) mg/dL Urine Occult Blood (NEGATIVE) Urine Nitrite (NEGATIVE) Urine Bilirubin (NEGATIVE) Urine Urobilinogen (0.2) EU/dL Ur Leukocyte Esterase (NEGATIVE) U Hyaline Cast (Auto) Urine RBC (NOT SEEN) /HPF Urine WBC (NOT SEEN) /HPF Ur Squamous Epith Cells (NOT SEEN) /HPF Ur Transition Epith Cell (NOT SEEN) /HPF Ur Renal Epithelial Cell (NOT SEEN) /HPF Urine Bacteria (NOT SEEN) /HPF Urine Mucus (NOT SEEN) /LPF 11/03/20 11/03/20 Range/Units 15:39 17:16 WBC (4.0-10.0) x10^3/uL RBC (4.00-5.50) x10^6/uL Hgb (12.0-16.0) g/dL Hct (33.0-47.0) % MCV (78.0-93.0) fL MCH (26.0-32.0) pg MCHC (32.0-36.0) g/dL RDW Coeff of Jolynn (10.0-15.0) % Plt Count (130-400) x10^3/uL Neut % (Auto) (50.0-80.0) % Lymph % (Auto) (25.0-50.0) % Alfalfa % (Auto) (2.0-11.0) % Eos % (Auto) (0.0-4.0) % Baso % (Auto) (0.2-1.2) % Sodium (136-145) mmol/L Potassium (3.5-5.1) mmol/L Chloride (98-107) mmol/L Carbon Dioxide (21-32) mmol/L Anion Gap (5-15) mmol/L BUN (7-18) mg/dL Creatinine (0.55-1.02) mg/dL Est Cr Clr Drug Dosing Estimated GFR (MDRD) Glucose (70-99) mg/dL Lactic Acid (0.4-2.0) mmol/L Calcium (8.5-10.1) mg/dL Corrected Calcium (8.5-10.1) mg/dL Total Bilirubin (0.2-1.0) mg/dL AST (15-37) U/L ALT (14-59) U/L Alkaline Phosphatase (46-116) U/L Troponin I High Sens 7 (<=51) ng/L C-Reactive Protein (<=0.9) mg/dL Total Protein (6.4-8.2) g/dL Albumin (3.4-5.0) g/dL Globulin Albumin/Globulin Ratio Lipase (73-393) U/L Urine Color Yellow (YELLOW) Urine Appearance Clear (CLEAR) Urine pH 7.5 (5.0-8.0) Ur Specific [place] 1.025 Urine Protein Trace H (NEGATIVE) mg/dL Urine Glucose (UA) Negative (NEGATIVE) mg/dL Urine Ketones Negative (NEGATIVE) mg/dL Urine Occult Blood Trace-intact H (NEGATIVE) Urine Nitrite Negative (NEGATIVE) Urine Bilirubin Negative (NEGATIVE) Urine Urobilinogen 0.2 (0.2) EU/dL Ur Leukocyte Esterase Small H (NEGATIVE) U Hyaline Cast (Auto) Rare Urine RBC 0-5 (NOT SEEN) /HPF Urine WBC 5-10 H (NOT SEEN) /HPF Ur Squamous Epith Cells Rare (NOT SEEN) /HPF Ur Transition Epith Cell Rare H (NOT SEEN) /HPF Ur Renal Epithelial Cell Rare H (NOT SEEN) /HPF Urine Bacteria Not seen (NOT SEEN) /HPF Urine Mucus Not seen (NOT SEEN) /LPF Meds: Medications Generic Name Dose Route Start Last Admin Trade Name Freq PRN Reason Stop Dose Admin Sodium Chloride 1,000 mls @ 1,000 mls/hr 11/03/20 16:00 11/03/20 16:36 Normal Saline IV 1,000 mls/hr ASDIRECTED KRISTINE Administration Sodium Chloride 10 ml 11/03/20 15:01 Sodium Chloride 0.9% 10 Ml Syringe FLUSH ASDIRECTED PRN Keep Vein Open Discontinued Medications Generic Name Dose Route Start Last Admin Trade Name Freq PRN Reason Stop Dose Admin Diphenhydramine HCl 25 mg 11/03/20 15:56 11/03/20 16:20 Diphenhydramine 50 Mg/Ml Sdv IVPUSH 11/03/20 15:57 25 mg ONETIME ONE Administration Fentanyl 50 mcg 11/03/20 16:29 11/03/20 16:36 Fentanyl 50 Mcg/Ml Sdv IVPUSH 11/03/20 16:30 50 mcg ONETIME ONE Administration Fentanyl 50 mcg 11/03/20 17:30 11/03/20 17:44 Fentanyl 50 Mcg/Ml Sdv IVPUSH 11/03/20 17:31 50 mcg ONETIME ONE Administration Iopamidol 100 ml 11/03/20 16:53 11/03/20 17:22 Iopamidol 612 Mg/Ml 100 Ml Bottle IVPUSH 11/03/20 16:54 75 ml ONETIME ONE Administration Metoclopramide HCl 10 mg 11/03/20 15:57 11/03/20 16:22 Metoclopramide 10 Mg/2 Ml Sdv IVPUSH 11/03/20 15:58 10 mg ONETIME ONE Administration Morphine Sulfate 2 mg 11/03/20 15:27 11/03/20 15:42 Morphine 2 Mg/Ml Syringe IVPUSH 11/03/20 15:28 2 mg ONETIME ONE Administration Ondansetron HCl 4 mg 11/03/20 15:27 11/03/20 15:38 Ondansetron 4 Mg/2 Ml Sdv IVPUSH 11/03/20 15:28 4 mg ONETIME ONE Administration - Radiology Interpretation Free Text/Narrative:: ct non contrast abdomen and pelvis discussed with radiology, right kidney is significantly hydronephrotic, free fluid in abdomen, narrowing of right UVJ, Possible right sided parapelvic cyst, gallbladder is moderately distended, mild thickening of the gallbladder, no free air, no bowel obstruction. surgical consultation requested CT with contrast, with no evidence of ischemic bowel, gallbladder is distended with thickening of the wall and small amount of pericholecystic fluid. Right kidney is functioning but hydronephrotic likely chronic secondary to UPJ narrowing, interpreted by radiology - Re-Assessments/Exams Free Text/Narrative Re-Assessment/Exam: 11/03/20 15:45 Patient answers questions minimally, writhing in pain, rigid abdomen. IV morphine sulfate 2 mg, zofran 4 mg IVP, ns 1 liter bolus, ct abodmen without, labs. 11/03/20 15:57 still vomiting, benadryl 25 mg IVP and reglan 10 mg IVP 11/03/20 16:20 appears to have fluid accumlation and free fluid in abdomen elevated lactic, concern for obstruction/ischemic bowel versus R hydronephrosis without definitive obstruction , gallbladder distended with free fluid. Discussed with radiology, etiology of the free fluid is unsure. Still writhing in pain vomiting. Will place an NG to decompress bowel, images pushed to [facility] and will call for surgical consult 11/03/20 16:26 11/03/20 16:42 unable to get NG, patient did stop vomiting. Will repeat CT with IV contrast. Given fentanyl 50 mcg, continues to writhe in pain. Continued concern for ischemic bowel. repeat lactic at 18:45 continue IV fluids 11/03/20 17:[address] with contrast. Briefly discussed with surgeon at [place]. Will await results. Does not appear surgical at this time. repeat lactic in one hour. Bed situation in [facility]. Patient in slightly less pain. 11/03/20 17:30 pain is increasing, fentanyl 50 jerel given 11/03/20 18:07 Patient is doing better. discussed possibility of cholecystitis. the right sided hydronephrosis appears chronic. Normal white blood count and LFT. Will admit, give iv pain medication and antibitoics. Discuss transfer in the am if not improved. Patient and family are agreeable. Departure - Departure Time of Disposition: 18:10 Disposition: Refer to Observation Clinical Impression: Cholecystitis, Abdominal pain, Elevated lactic acid level, Hydronephrosis - Discharge Information Referrals: Lor Gonzalez PA-C [Primary Care Provider] - Sepsis Event Note (ED) - Focused Exam Vital Signs: Vital Signs Temp Pulse Resp BP Pulse Ox 11/03/20 15:15 35.8 C L 72 24 H 187/103 H 100 - My Orders Last 24 Hours: My Active Orders 11/03/20 15:01 Sodium Chloride 0.9% [Saline Flush] 10 ml FLUSH ASDIRECTED PRN Peripheral IV Insertion Adult [OM.PC] Urgent 11/03/20 16:00 Sodium Chloride 0.9% [Normal Saline] 1,000 ml IV ASDIRECTED 11/03/20 16:10 REFLEX LACTIC ACID YES OR NO [CHEM] Routine 11/03/20 16:19 Nasogastric Orogastric Tube Insertion [OM.PC] Routine - Assessment/Plan Last 24 Hours: My Active Orders 11/03/20 15:01 Sodium Chloride 0.9% [Saline Flush] 10 ml FLUSH ASDIRECTED PRN Peripheral IV Insertion Adult [OM.PC] Urgent 11/03/20 16:00 Sodium Chloride 0.9% [Normal Saline] 1,000 ml IV ASDIRECTED 11/03/20 16:10 REFLEX LACTIC ACID YES OR NO [CHEM] Routine 11/03/20 16:19 Nasogastric Orogastric Tube Insertion [OM.PC] Routine
[2020-11-03] MEDS ORDERED: diphenhydrAMINE 50 MG/ML SDV IVPUSH ONE (15:56)
[2020-11-03] MEDS ORDERED: Metoclopramide 10 MG/2 ML SDV IVPUSH ONE (15:57)
[2020-11-03] MEDS ORDERED: Sodium Chloride 0.9% 1,000 ML IV SCH ×2 (16:00→19:00)
[2020-11-03 16:05] LABS: CHLORIDE,CL 99 mmol/L (98-107); SODIUM,NA 135 mmol/L (136-145)
[2020-11-03 16:07] LABS: ANION GAP 12.7 mmol/L (5-15)
[2020-11-03] MEDS ORDERED: fentaNYL 50 MCG/ML SDV IVPUSH ONE ×2 (16:29→17:30)
--- NOTE | 2020-11-03 16:32 | CT ---
[id number] CT/CT Abdomen Pelvis WO IV Exam: CT Abdomen Pelvis WO IV Clinical Data: ABDOMINAL PAIN COMPARISON: NO PREVIOUS SIMILAR EXAM IS AVAILABLE FINDINGS: The right kidney is significantly hydronephrotic The urinary bladder is distended. There is a small amount of free fluid in the abdomen There appears to be narrowing of the ureteropelvic junction on the right. There may also be a large right-sided parapelvic cyst Lack of IV contrast limits the study Urology consultation is needed The left kidney is unremarkable The gallbladder is moderately distended also There is mild thickening of the gallbladder wall The liver and spleen are unremarkable There is no bowel obstruction There is no free air The pelvis shows no mass or adenopathy Report called IMPRESSION: SIGNIFICANT RIGHT-SIDED HYDRONEPHROSIS SMALL AMOUNT OF FREE FLUID DISTENDED GALLBLADDER THICKENING OF GALLBLADDER WALL SURGICAL CONSULTATION SUGGESTED Giovanny Combs MD 11/03/20 2134 Thank you for allowing us to participate in the care of your patient.
[2020-11-03] MEDS ORDERED: Iopamidol 612 MG/ML 100 ML Bottle IVPUSH ONE (16:53)
--- NOTE | 2020-11-03 17:39 | CT ---
[id number] CT/CT Abdomen Pelvis W IV EXAM: CT Abdomen Pelvis W IV CLINICAL DATA: POSSIBLE ISCHEMIC BOWEL COMPARISON: CORRELATION IS MADE WITH THE EARLIER PLAIN CT ABDOMEN FINDINGS: There is free fluid. The right kidney is functioning but hydronephrotic The gallbladder is distended with thickening of the wall and a small amount of pericholecystic fluid. The celiac axis is patent. The superior mesenteric artery is patent. The celiac axis is identified on image 57, series 4 The superior mesenteric artery is seen on image 58, series 4 The left kidney is unremarkable. 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
[2020-11-03] MEDS ORDERED: Acetaminophen 325 MG Tab PO PRN (18:52)
[2020-11-03] MEDS: Sodium Chloride 0.9% 10 ML Syringe FLUSH PRN ×2 (19:49→22:46)
[2020-11-03] MEDS: Piperacillin/Tazobactam 3.375 GM in Sodium Chloride 0.9% 100 ML IV SCH (19:50)
[2020-11-03] MEDS: Ondansetron 4 MG/2 ML SDV IVPUSH PRN (19:59)
[2020-11-03] MEDS: Morphine 4 MG/ML Syringe IVPUSH PRN (22:34)
[2020-11-04] MEDS: Piperacillin/Tazobactam 3.375 GM in Sodium Chloride 0.9% 100 ML IV SCH (02:25)
[2020-11-04] MEDS: Sodium Chloride 0.9% 10 ML Syringe FLUSH PRN (05:47)
[2020-11-04] MEDS: Morphine 4 MG/ML Syringe IVPUSH PRN ×2 (05:47→09:03)
[2020-11-04 08:12] LABS: ANION GAP 13.1 mmol/L (5-15)
--- NOTE | 2020-11-04 08:31 | PCM.DCSUM1 ---
Discharge Summary - Hospital Course Free Text/Narrative:: Patient was admitted last night for abdominal pain, cholecystitis and elevated lactic acid. Rested comfortably overnigh. Minimal pain medication use, pain is better and taking PO liquids. Desire to go home and follow up with general surgery on a elective basis. Educated on need for urology follow up also due to chronic right hydronephrosis. will send home with antibiotics and pain and nausea medications HPI Initial Comments: see narrative, abdominal pain yesterday, cholecystitis, hydronephrosis. vomiting Diagnosis: Stroke: No Modified Burke Scale: No Signif.Disability Despite Sympt.Able to Carry Out Usual Act./Duties Modified Burke Scale Score: 1 - Discharge Data Discharge Date: 11/04/20 Discharge Disposition: Home, Self-Care 01 Condition: Good - Referral to Home Health Primary Care Physician: Lor Gonzalez PA-C - Patient Summary/Data Complications: none Consults: follow up with urology and general surgery Labs Pending at D/C: none Recommended Follow-up Testing/Procedures: general surgery consult for cholecystectomy, urololgy for chronic right sided hydronephrosis and ureter narrowing Hospital Course: Did well overnight, taking PO fluids, pain controlled, labs improved. - Patient Instructions Diet: Heart Healthy Diet Diet, Other: low fat, gallbladder eating diet Showering/Bathing: September Shower - Discharge Plan *PRESCRIPTION DRUG MONITORING PROGRAM REVIEWED*: No *COPY OF PRESCRIPTION DRUG MONITORING REPORT IN PATIENT ALETHEA: No Prescriptions/Med Rec: Amoxicillin/Potassium Clav [Augmentin 875-125 Tablet] 1 each PO BID 9 Days #18 tablet Hydrocodone/Acetaminophen [Hydrocodone-Acetamin 5-325 mg] 1 each PO Q4HWA #20 tablet Ondansetron [Zofran ODT] 4 mg PO Q6H PRN #12 tab.dis PRN Reason: Nausea/Vomiting Tobacco Cessation Medication: Prescription Given Home Medications: Home Meds Albuterol Sulfate [Albuterol Sulfate Hfa] 2 puff IH Q4HR PRN 06/05/19 [History] Lactulose [Cephulac] 10 gm PO DAILY PRN 11/03/20 [History] Acetaminophen [Tylenol] 650 mg PO Q4H PRN tablet 11/04/20 [Rx] Amoxicillin/Potassium Clav [Augmentin 875-125 Tablet] 1 each PO BID 9 Days #18 tablet 11/04/20 [Rx] Hydrocodone/Acetaminophen [Hydrocodone-Acetamin 5-325 mg] 1 each PO Q4HWA #20 tablet 11/04/20 [Rx] Ondansetron [Zofran ODT] 4 mg PO Q6H PRN #12 tab.dis 11/04/20 [Rx] Patient Handouts: Cholecystitis, [id number], Gallbladder Eating Plan, Hydronephrosis, Abdominal Pain, Adult Forms: ED Department Discharge Referrals: Lor Gonzalez PA-C [Primary Care Provider] - - Discharge Summary/Plan Comment DC Time >30 min.: Yes Discharge Summary/Plan Comment: You were found to have an inflammation of your gallbladder. This is causing some of the abdominal pain. You need to follow a very low fat diet, take the antibiotics as prescribed and use the nausea medication and pain medication as needed. You will need to meet with a surgeon to discuss risks/benefits of surgery and a plan. This will continue to bother you in the mean time. REturn to the ED for inability to keep down foods/fluids, abdominal pain not being managed and/or fever. You were also found to have hydronephrosis of the right kidney that appears chronic from a narrowing of ureter. This needs follow up with a urologist. Make appointment with one of your choice in the near future. - Patient Data Vitals - Most Recent: Last Vital Signs Temp 36.7 C 11/04/20 06:00 Pulse 85 11/04/20 06:00 Resp 18 11/04/20 06:00 BP 175/86 H 11/04/20 06:00 Pulse Ox 99 11/04/20 06:00 Weight - Most Recent: 53.3 kg I&O - Last 24 hours: Intake & Output 11/03/20 11/04/20 11/04/20 22:59 06:59 14:59 Intake Total 1250 Output Total 1300 Balance -50 Lab Results - Last 24 hrs: Laboratory Results - last 24 hr 11/03/20 11/03/20 11/03/20 Range/Units 15:39 15:39 15:39 WBC 8.3 (4.0-10.0) x10^3/uL RBC 4.26 (4.00-5.50) x10^6/uL Hgb 12.6 (12.0-16.0) g/dL Hct 37.0 (33.0-47.0) % MCV 86.9 (78.0-93.0) fL MCH 29.6 (26.0-32.0) pg MCHC 34.1 (32.0-36.0) g/dL RDW Coeff of Jolynn 14.1 (10.0-15.0) % Plt Count 225 (130-400) x10^3/uL Neut % (Auto) 78.1 (50.0-80.0) % Lymph % (Auto) 15.5 L (25.0-50.0) % [place] % (Auto) 5.3 (2.0-11.0) % Eos % (Auto) 0.7 (0.0-4.0) % Baso % (Auto) 0.4 (0.2-1.2) % Sodium 135 L (136-145) mmol/L Potassium 3.7 (3.5-5.1) mmol/L Chloride 99 (98-107) mmol/L Carbon Dioxide 27 (21-32) mmol/L Anion Gap 12.7 (5-15) mmol/L BUN 11 (7-18) mg/dL Creatinine 0.9 (0.55-1.02) mg/dL Est Cr Clr Drug Dosing TNP Estimated GFR (MDRD) 59 Glucose 126 H (70-99) mg/dL Lactic Acid 2.8 H* (0.4-2.0) mmol/L Calcium 8.7 (8.5-10.1) mg/dL Corrected Calcium 8.9 (8.5-10.1) mg/dL Total Bilirubin 0.5 (0.2-1.0) mg/dL AST 21 (15-37) U/L ALT 9 L (14-59) U/L Alkaline Phosphatase 103 (46-116) U/L Troponin I High Sens (<=51) ng/L C-Reactive Protein < 0.2 (<=0.9) mg/dL Total Protein 7.3 (6.4-8.2) g/dL Albumin 3.8 (3.4-5.0) g/dL Globulin 3.5 Albumin/Globulin Ratio 1.09 Lipase 177 (73-393) U/L Urine Color (YELLOW) Urine Appearance (CLEAR) Urine pH (5.0-8.0) Ur Specific [place] Urine Protein (NEGATIVE) mg/dL Urine Glucose (UA) (NEGATIVE) mg/dL Urine Ketones (NEGATIVE) mg/dL Urine Occult Blood (NEGATIVE) Urine Nitrite (NEGATIVE) Urine Bilirubin (NEGATIVE) Urine Urobilinogen (0.2) EU/dL Ur Leukocyte Esterase (NEGATIVE) U Hyaline Cast (Auto) Urine RBC (NOT SEEN) /HPF Urine WBC (NOT SEEN) /HPF Ur Squamous Epith Cells (NOT SEEN) /HPF Ur Transition Epith Cell (NOT SEEN) /HPF Ur Renal Epithelial Cell (NOT SEEN) /HPF Urine Bacteria (NOT SEEN) /HPF Urine Mucus (NOT SEEN) /LPF SARS CoV-2 RNA Rapid MIGUEL (NEGATIVE) 11/03/20 11/03/20 11/03/20 Range/Units 15:39 17:16 18:19 WBC (4.0-10.0) x10^3/uL RBC (4.00-5.50) x10^6/uL Hgb (12.0-16.0) g/dL Hct (33.0-47.0) % MCV (78.0-93.0) fL MCH (26.0-32.0) pg MCHC (32.0-36.0) g/dL RDW Coeff of Jolynn (10.0-15.0) % Plt Count (130-400) x10^3/uL Neut % (Auto) (50.0-80.0) % Lymph % (Auto) (25.0-50.0) % [place] % (Auto) (2.0-11.0) % Eos % (Auto) (0.0-4.0) % Baso % (Auto) (0.2-1.2) % Sodium (136-145) mmol/L Potassium (3.5-5.1) mmol/L Chloride (98-107) mmol/L Carbon Dioxide (21-32) mmol/L Anion Gap (5-15) mmol/L BUN (7-18) mg/dL Creatinine (0.55-1.02) mg/dL Est Cr Clr Drug Dosing Estimated GFR (MDRD) Glucose (70-99) mg/dL Lactic Acid 2.5 H* (0.4-2.0) mmol/L Calcium (8.5-10.1) mg/dL Corrected Calcium (8.5-10.1) mg/dL Total Bilirubin (0.2-1.0) mg/dL AST (15-37) U/L ALT (14-59) U/L Alkaline Phosphatase (46-116) U/L Troponin I High Sens 7 (<=51) ng/L C-Reactive Protein (<=0.9) mg/dL Total Protein (6.4-8.2) g/dL Albumin (3.4-5.0) g/dL Globulin Albumin/Globulin Ratio Lipase (73-393) U/L Urine Color Yellow (YELLOW) Urine Appearance Clear (CLEAR) Urine pH 7.5 (5.0-8.0) Ur Specific [place] 1.025 Urine Protein Trace H (NEGATIVE) mg/dL Urine Glucose (UA) Negative (NEGATIVE) mg/dL Urine Ketones Negative (NEGATIVE) mg/dL Urine Occult Blood Trace-intact H (NEGATIVE) Urine Nitrite Negative (NEGATIVE) Urine Bilirubin Negative (NEGATIVE) Urine Urobilinogen 0.2 (0.2) EU/dL Ur Leukocyte Esterase Small H (NEGATIVE) U Hyaline Cast (Auto) Rare Urine RBC 0-5 (NOT SEEN) /HPF Urine WBC 5-10 H (NOT SEEN) /HPF Ur Squamous Epith Cells Rare (NOT SEEN) /HPF Ur Transition Epith Cell Rare H (NOT SEEN) /HPF Ur Renal Epithelial Cell Rare H (NOT SEEN) /HPF Urine Bacteria Not seen (NOT SEEN) /HPF Urine Mucus Not seen (NOT SEEN) /LPF SARS CoV-2 RNA Rapid MIGUEL (NEGATIVE) 11/03/20 11/04/20 11/04/20 Range/Units 20:09 07:45 07:45 WBC 12.5 H (4.0-10.0) x10^3/uL RBC 4.32 (4.00-5.50) x10^6/uL Hgb 12.9 (12.0-16.0) g/dL Hct 37.2 (33.0-47.0) % MCV 86.1 (78.0-93.0) fL MCH 29.9 (26.0-32.0) pg MCHC 34.7 (32.0-36.0) g/dL RDW Coeff of Jolynn 14.0 (10.0-15.0) % Plt Count 200 (130-400) x10^3/uL Neut % (Auto) 87.9 H (50.0-80.0) % Lymph % (Auto) 6.1 L (25.0-50.0) % [place] % (Auto) 5.8 (2.0-11.0) % Eos % (Auto) 0.0 (0.0-4.0) % Baso % (Auto) 0.2 (0.2-1.2) % Sodium 132 L (136-145) mmol/L Potassium 4.1 (3.5-5.1) mmol/L Chloride 97 L (98-107) mmol/L Carbon Dioxide 26 (21-32) mmol/L Anion Gap 13.1 (5-15) mmol/L BUN 10 (7-18) mg/dL Creatinine 0.9 (0.55-1.02) mg/dL Est Cr Clr Drug Dosing 35.05 Estimated GFR (MDRD) 59 Glucose 126 H (70-99) mg/dL Lactic Acid (0.4-2.0) mmol/L Calcium 8.1 L (8.5-10.1) mg/dL Corrected Calcium 8.5 (8.5-10.1) mg/dL Total Bilirubin 1.2 H (0.2-1.0) mg/dL AST 26 (15-37) U/L ALT 22 (14-59) U/L Alkaline Phosphatase 89 (46-116) U/L Troponin I High Sens (<=51) ng/L C-Reactive Protein (<=0.9) mg/dL Total Protein 6.8 (6.4-8.2) g/dL Albumin 3.5 (3.4-5.0) g/dL Globulin 3.3 Albumin/Globulin Ratio 1.06 Lipase (73-393) U/L Urine Color (YELLOW) Urine Appearance (CLEAR) Urine pH (5.0-8.0) Ur Specific [place] Urine Protein (NEGATIVE) mg/dL Urine Glucose (UA) (NEGATIVE) mg/dL Urine Ketones (NEGATIVE) mg/dL Urine Occult Blood (NEGATIVE) Urine Nitrite (NEGATIVE) Urine Bilirubin (NEGATIVE) Urine Urobilinogen (0.2) EU/dL Ur Leukocyte Esterase (NEGATIVE) U Hyaline Cast (Auto) Urine RBC (NOT SEEN) /HPF Urine WBC (NOT SEEN) /HPF Ur Squamous Epith Cells (NOT SEEN) /HPF Ur Transition Epith Cell (NOT SEEN) /HPF Ur Renal Epithelial Cell (NOT SEEN) /HPF Urine Bacteria (NOT SEEN) /HPF Urine Mucus (NOT SEEN) /LPF SARS CoV-2 RNA Rapid MIGUEL Negative (NEGATIVE) 11/04/20 Range/Units 07:45 WBC (4.0-10.0) x10^3/uL RBC (4.00-5.50) x10^6/uL Hgb (12.0-16.0) g/dL Hct (33.0-47.0) % MCV (78.0-93.0) fL MCH (26.0-32.0) pg MCHC (32.0-36.0) g/dL RDW Coeff of Jolynn (10.0-15.0) % Plt Count (130-400) x10^3/uL Neut % (Auto) (50.0-80.0) % Lymph % (Auto) (25.0-50.0) % [place] % (Auto) (2.0-11.0) % Eos % (Auto) (0.0-4.0) % Baso % (Auto) (0.2-1.2) % Sodium (136-145) mmol/L Potassium (3.5-5.1) mmol/L Chloride (98-107) mmol/L Carbon Dioxide (21-32) mmol/L Anion Gap (5-15) mmol/L BUN (7-18) mg/dL Creatinine (0.55-1.02) mg/dL Est Cr Clr Drug Dosing Estimated GFR (MDRD) Glucose (70-99) mg/dL Lactic Acid 1.8 (0.4-2.0) mmol/L Calcium (8.5-10.1) mg/dL Corrected Calcium (8.5-10.1) mg/dL Total Bilirubin (0.2-1.0) mg/dL AST (15-37) U/L ALT (14-59) U/L Alkaline Phosphatase (46-116) U/L Troponin I High Sens (<=51) ng/L C-Reactive Protein (<=0.9) mg/dL Total Protein (6.4-8.2) g/dL Albumin (3.4-5.0) g/dL Globulin Albumin/Globulin Ratio Lipase (73-393) U/L Urine Color (YELLOW) Urine Appearance (CLEAR) Urine pH (5.0-8.0) Ur Specific [place] Urine Protein (NEGATIVE) mg/dL Urine Glucose (UA) (NEGATIVE) mg/dL Urine Ketones (NEGATIVE) mg/dL Urine Occult Blood (NEGATIVE) Urine Nitrite (NEGATIVE) Urine Bilirubin (NEGATIVE) Urine Urobilinogen (0.2) EU/dL Ur Leukocyte Esterase (NEGATIVE) U Hyaline Cast (Auto) Urine RBC (NOT SEEN) /HPF Urine WBC (NOT SEEN) /HPF Ur Squamous Epith Cells (NOT SEEN) /HPF Ur Transition Epith Cell (NOT SEEN) /HPF Ur Renal Epithelial Cell (NOT SEEN) /HPF Urine Bacteria (NOT SEEN) /HPF Urine Mucus (NOT SEEN) /LPF SARS CoV-2 RNA Rapid MIGUEL (NEGATIVE) Med Orders - Current: Current Medications Acetaminophen (Acetaminophen 325 Mg Tab) 650 mg PO Q4H PRN PRN Reason: analgesia/fever Sodium Chloride (Normal Saline) 1,000 mls @ 150 mls/hr IV ASDIRECTED [facility] Last Infusion: 11/04/20 00:05 Dose: 150 mls/hr Documented by: Piperacillin Sod/Tazobactam (Sod 3.375 gm/ Sodium Chloride) 100 mls @ 25 mls/hr IV Q8H [facility] Last Admin: 11/04/20 02:25 Dose: 25 mls/hr Documented by: Morphine Sulfate (Morphine 4 Mg/Ml Syringe) 0 mg IVPUSH Q2H PRN PRN Reason: Pain Last Admin: 11/04/20 05:47 Dose: 2 mg Documented by: Ondansetron HCl (Ondansetron 4 Mg/2 Ml Sdv) 4 mg IVPUSH Q8H PRN PRN Reason: Nausea Last Admin: 11/03/20 19:59 Dose: 4 mg Documented by: Sodium Chloride (Sodium Chloride 0.9% 10 Ml Syringe) 10 ml FLUSH ASDIRECTED PRN PRN Reason: Keep Vein Open Last Admin: 11/04/20 05:47 Dose: 10 ml Documented by: Discontinued Medications Diphenhydramine HCl (Diphenhydramine 50 Mg/Ml Sdv) 25 mg IVPUSH ONETIME ONE Stop: 11/03/20 15:57 Last Admin: 11/03/20 16:20 Dose: 25 mg Documented by: Fentanyl (Fentanyl 50 Mcg/Ml Sdv) 50 mcg IVPUSH ONETIME ONE Stop: 11/03/20 16:30 Last Admin: 11/03/20 16:36 Dose: 50 mcg Documented by: Fentanyl (Fentanyl 50 Mcg/Ml Sdv) 50 mcg IVPUSH ONETIME ONE Stop: 11/03/20 17:31 Last Admin: 11/03/20 17:44 Dose: 50 mcg Documented by: Sodium Chloride (Normal Saline) 1,000 mls @ 1,000 mls/hr IV ASDIRECTED KRISTINE Last Admin: 11/03/20 16:36 Dose: 1,000 mls/hr Documented by: Iopamidol (Iopamidol 612 Mg/Ml 100 Ml Bottle) 100 ml IVPUSH ONETIME ONE Stop: 11/03/20 16:54 Last Admin: 11/03/20 17:22 Dose: 75 ml Documented by: Metoclopramide HCl (Metoclopramide 10 Mg/2 Ml Sdv) 10 mg IVPUSH ONETIME ONE Stop: 11/03/20 15:58 Last Admin: 11/03/20 16:22 Dose: 10 mg Documented by: Morphine Sulfate (Morphine 2 Mg/Ml Syringe) 2 mg IVPUSH ONETIME ONE Stop: 11/03/20 15:28 Last Admin: 11/03/20 15:42 Dose: 2 mg Documented by: Ondansetron HCl (Ondansetron 4 Mg/2 Ml Sdv) 4 mg IVPUSH ONETIME ONE Stop: 11/03/20 15:28 Last Admin: 11/03/20 15:38 Dose: 4 mg Documented by:
[2020-11-04] MEDS: Ondansetron 4 MG/2 ML SDV IVPUSH PRN (09:03)
[2020-11-04 09:12] VITALS: BP 158/76; PULSE 81
== END 2020-11-04 09:59 | disposition home or self-care (01) ==
LOC: VM.ED 14:51 → VM.MS 18:33
PROVIDERS: ADMIT Physician Assistant; ATTEND Physician Assistant
DX: K81.9 Cholecystitis, unspecified (principal); N13.30 Unspecified hydronephrosis; I48.91 Unspecified atrial fibrillation; I25.2 Old myocardial infarction; Z20.822 Contact with and (suspected) exposure to COVID-19; Z79.899 Other long term (current) drug therapy; Z88.8 Allergy status to other drugs, medicaments and biological substances; Z91.02 Food additives allergy status; Z79.82 Long term (current) use of aspirin
CPT/HCPCS: 36415; 74176; 74177; 80053; 81001; 83605; 83690; 84484; 85025; 86140; 96365; 96366; 96374; 96375; 96376; 99217; 99220; 99285-25; G0378; J1200; J2270; J2405; J2543; J2765; J3010; J7030; Q9967; U0002